=== PATIENT | female | born 1970 | race Caucasian/White ===

== ENCOUNTER → 2021-05-31 | Outpatient (CLI) | payer MEDICARE ==
[2021-05-31 17:16] LABS: RED BLOOD COUNT 4.96 M/UL (4.00-5.10); WHITE BLOOD COUNT 4.7 K/UL (4.5-11.0)
[2021-05-31 17:51] LABS: BUN/CREATININE RATIO 14 (0-10)
== END ==
LOC: LAB 16:35
PROVIDERS: Internal Medicine Cardiovascular Disease
DX: R06.02 Shortness of breath (principal); E78.5 Hyperlipidemia, unspecified; R07.9 Chest pain, unspecified
CPT/HCPCS: 36415; 80053; 80061; 84436; 84443; 85025

== ENCOUNTER → 2021-10-21 | Outpatient (CLI) | payer MEDICARE ==
[2021-10-21 08:01] LABS: HEMOGLOBIN 13.7 gm/dl (12.3-15.3); RED BLOOD COUNT 4.78 M/UL (4.00-5.10); WHITE BLOOD COUNT 3.2 K/UL (4.5-11.0)
[2021-10-21 08:20] LABS: BUN/CREATININE RATIO 25 (0-10)
== END ==
LOC: LAB 07:23
PROVIDERS: Nurse Practitioner Family
DX: I10 Essential (primary) hypertension (principal); I25.10 Atherosclerotic heart disease of native coronary artery without angina pectoris; E78.5 Hyperlipidemia, unspecified; R07.9 Chest pain, unspecified; R06.02 Shortness of breath; R53.82 Chronic fatigue, unspecified
CPT/HCPCS: 36415; 80053; 80061; 84436; 84443; 85027

== ENCOUNTER → 2021-10-23 | Outpatient (CLI) | payer MEDICARE | LOC: EROP 14:21 | DX: U07.1 COVID-19 (principal); Z23 Encounter for immunization; M06.9 Rheumatoid arthritis, unspecified; I25.10 Atherosclerotic heart disease of native coronary artery without angina pectoris | CPT/HCPCS: 96365 ==